=== PATIENT | male | born 1960 | race Caucasian/White ===

== ENCOUNTER 2017-02-25 14:24 | Emergency (ER) | payer MEDICARE, MEDICAID ==
[~2017-02-25] VITALS: Ht 177.8 cm; Wt 80.0 kg
[2017-02-25] MEDS ORDERED: LORAZEPAM 2MG/ML CPJ IM ONE (16:15)
[2017-02-25] MEDS ORDERED: TETANUS, DIPHTHERIA, PERTUSSIS VAC/PF 0.5ML (>7YR OLD) IM ONE (16:30)
[2017-02-25] MEDS ORDERED: LIDOCAINE HCL 1%/EPI 1:200,000 30 ML VIAL MC ONE (16:30)
[2017-02-25] MEDS ORDERED: BACITRACIN ZINC OINT UDPKT TOP ONE ×2 (16:30→21:15)
[2017-02-25 21:00] VITALS: BP 108/66
== END 2017-02-25 22:21 | disposition home or self-care (01) ==
LOC: ER 14:53
DX: S01.81XA Laceration without foreign body of other part of head, initial encounter (principal); R51 Headache; W17.89XA Other fall from one level to another, initial encounter; Y93.89 Activity, other specified; Y92.122 Bedroom in nursing home as the place of occurrence of the external cause; Z23 Encounter for immunization; G80.9 Cerebral palsy, unspecified; R03.0 Elevated blood-pressure reading, without diagnosis of hypertension; M48.02 Spinal stenosis, cervical region; R47.01 Aphasia; G40.909 Epilepsy, unspecified, not intractable, without status epilepticus
CPT/HCPCS: 12011; 70450; 70486; 72125; 90471; 90715; 96372; 99284; J2060